=== PATIENT | female | born 1940 | race Caucasian/White ===

== ENCOUNTER 2020-04-27 09:06 | Inpatient (IN) | payer MEDICARE, OTHER ==
[2020-04-27] MEDS ORDERED: Sodium Chloride 0.9% 2.5 ML Syringe FLUSH PRN (09:23)
[2020-04-27] MEDS ORDERED: Sodium Chloride 0.9% 10 ML Syringe FLUSH PRN (09:23)
[2020-04-27] MEDS ORDERED: Sodium Chloride 0.9% 1,000 ML IV ONE (09:23)
--- NOTE | 2020-04-27 09:28 | EDM.PDOC ---
ED HPI GENERAL MEDICAL PROBLEM - General Chief Complaint: Abdominal Pain Stated Complaint: SEVERE ABDOMINAL PAINS Time Seen by Provider: 04/27/20 09:22 - History of Present Illness INITIAL COMMENTS - FREE TEXT/NARRATIVE: History of present illness: Patient presents with several days of abdominal pain and constipation she has seen a regular doctor and tried Colace as well as some MiraLAX and is unable to have a bowel movement she has had a small bowel movement last Lauren is now been 6 days she is passing a small amount of gas but she is having lots of pain and discomfort she denies any dysuria nausea vomiting she has not had any other symptoms but she states she did have an elevated temp at 100.1 yesterday she denies taking any pain medications that might cause constipation Review of systems: As per history of present illness and below otherwise all systems reviewed and negative. Past medical history: As per history of present illness and as reviewed below otherwise noncontributory. Surgical history: As per history of present illness and as reviewed below otherwise noncontributory. Social history: No reported history of drug or alcohol abuse. Family history: As per history of present illness and as reviewed below otherwise noncontributory. Physical exam: HEENT: Atraumatic, normocephalic, pupils reactive, negative for conjunctival pallor or scleral icterus, mucous membranes moist, throat clear, neck supple, nontender, trachea midline. Lungs: Clear to auscultation, breath sounds equal bilaterally, chest nontender. Heart: S1S2, regular, negative for clicks, rubs, or JVD. Abdomen: Soft, nondistended, nontender. Negative for masses or hepatosplenomegaly. Negative for costovertebral tenderness. Pelvis: Stable nontender. Genitourinary: Deferred. Rectal: Deferred. Extremities: Atraumatic, negative for cords or calf pain. Neurovascular unremarkable. Neuro: Awake, alert, oriented. Cranial nerves II through XII unremarkable. Cerebellum unremarkable. Motor and sensory unremarkable throughout. Exam nonfocal. Diagnostics: [] Therapeutics: [] Impression: Abdominal pain, constipation [] Plan: Patient will have labs fluids and CT of the abdomen pelvis due to her abdominal pain. She will then be reassessed [] Definitive disposition and diagnosis as appropriate pending reevaluation and review of above. lower abdomen Pain Score (Numeric/FACES): 6 - Related Data Allergies Allergy/AdvReac Type Severity Reaction Status Date / Time No Known Allergies Allergy Verified 04/27/20 09:09 Home Meds: Home Meds Hydrochlorothiazide 1 tab PO DAILY 03/28/16 [History] Levothyroxine [Synthroid] 75 mcg PO DAILY 03/28/16 [History] Multivitamin [Daily Multiple Vitamin] 1 tab PO DAILY 03/28/16 [History] Rosuvastatin [Crestor] 10 mg PO DAILY 03/28/16 [History] Diltiazem [Cardizem SR] 120 mg PO DAILY 04/27/20 [History] Escitalopram [Lexapro] 10 mg PO DAILY 04/27/20 [History] Past Medical History HEENT History: Reports: None Cardiovascular History: Reports: Afib, High Cholesterol, Hypertension Respiratory History: Reports: None Gastrointestinal History: Reports: None Genitourinary History: Reports: None 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: Musculoskeletal History: Reports: None Neurological History: Reports: None Psychiatric History: Reports: Depression Endocrine/Metabolic History: Reports: Hypothyroidism Hematologic History: Reports: None Immunologic History: Reports: None Oncologic (Cancer) History: Reports: None Dermatologic History: Reports: None - Infectious Disease History Infectious Disease History: Reports: Chicken Pox, Measles - Past Surgical History Head Surgeries/Procedures: Reports: None HEENT Surgical History: Reports: None Cardiovascular Surgical History: Reports: None Respiratory Surgical History: Reports: None GI Surgical History: Reports: Appendectomy, Cholecystectomy Female Surgical History: Reports: Hysterectomy, Other (See Below) Other Female Surgeries/Procedures: "bladder surgery" Endocrine Surgical History: Reports: None Neurological Surgical History: Reports: None Musculoskeletal Surgical History: Reports: Shoulder Replacement Oncologic Surgical History: Reports: None Dermatological Surgical History: Reports: None Social & Family History - Family History Family Medical History: Noncontributory - Tobacco Use Smoking Status *Q: Never Smoker Second Hand Smoke Exposure: No - Caffeine Use Caffeine Use: Reports: None - Recreational Drug Use Recreational Drug Use: No ED ROS GENERAL - Review of Systems Review Of Systems: See Below ED EXAM, GENERAL - Physical Exam Exam: See Below Course - Vital Signs Text/Narrative:: Patient results include a hypokalemia at 2.5 leukocytosis at 16,000 and a diverticulitis on the CT read by radiology on her CT abdomen and pelvis patient is otherwise stable her potassium was repleted orally she will be started on Zosyn I discussed case with Dr. Stone at 11:05 AM and he will admit the patient to the hospital full admission telemetry. Last Recorded V/S: Last Vital Signs Temp 36.1 C 04/27/20 09:10 Pulse 81 04/27/20 09:10 Resp 18 04/27/20 09:10 BP 131/83 04/27/20 09:10 Pulse Ox 97 04/27/20 09:10 - Orders/Labs/Meds Orders: Active Orders 24 hr Category Date Time Status CORONAVIRUS COVID-19 PCR PHL Stat Lab 04/27/20 10:56 Ordered UA W/ISMAEL RFLX IF INDICATED [URIN] Stat Lab 04/27/20 09:24 Ordered Piperacillin/Tazobactam [Piperacil-Tazobact] 3.375 gm Med 04/27/20 10:57 Active Sodium Chloride 0.9% [Normal Saline] 50 ml IV ONETIME Sodium Chloride 0.9% [Saline Flush] Med 04/27/20 09:23 Active 10 ml FLUSH ASDIRECTED PRN Sodium Chloride 0.9% [Saline Flush] Med 04/27/20 09:23 Active 2.5 ml FLUSH ASDIRECTED PRN Saline Lock Insert [OM.PC] Stat Oth 04/27/20 09:23 Ordered Medication Orders Piperacillin Sod/Tazobactam (Sod 3.375 gm/ Sodium Chloride) 50 mls @ 100 mls/hr IV ONETIME ONE Stop: 04/27/20 11:26 Sodium Chloride (Saline Flush) 10 ml FLUSH ASDIRECTED PRN PRN Reason: Keep Vein Open Last Admin: 04/27/20 09:32 Dose: 10 ml Documented by: SHMUEL Sodium Chloride (Saline Flush) 2.5 ml FLUSH ASDIRECTED PRN PRN Reason: Keep Vein Open Last Admin: 04/27/20 09:32 Dose: 2.5 ml Documented by: SHMUEL Labs: Laboratory Tests 04/27/20 04/27/20 Range/Units 09:12 09:12 WBC 16.40 H (4.0-11.0) K/uL RBC 4.21 L (4.30-5.90) M/uL Hgb 13.5 (12.0-16.0) g/dL Hct 38.6 (36.0-46.0) % MCV 91.7 (80.0-98.0) fL MCH 32.1 H (27.0-32.0) pg MCHC 35.0 (31.0-37.0) g/dL RDW Std Deviation 42.7 (28.0-62.0) fl RDW Coeff of Bronwyn 13 (11.0-15.0) % Plt Count 231 (150-400) K/uL MPV 9.60 (7.40-12.00) fL Neut % (Auto) 77.0 (48.0-80.0) % Lymph % (Auto) 10.2 L (16.0-40.0) % [place] % (Auto) 12.0 (0.0-15.0) % Eos % (Auto) 0.7 (0.0-7.0) % Baso % (Auto) 0.1 (0.0-1.5) % Neut # (Auto) 12.6 H (1.4-5.7) K/uL Lymph # (Auto) 1.7 (0.6-2.4) K/uL [place] # (Auto) 2.0 H (0.0-0.8) K/uL Eos # (Auto) 0.1 (0.0-0.7) K/uL Baso # (Auto) 0.0 (0.0-0.1) K/uL Nucleated RBC % 0.0 /100WBC Nucleated RBCs # 0 K/uL Sodium 138 (136-145) mmol/L Potassium 2.5 L (3.5-5.1) mmol/L Chloride 98 (98-107) mmol/L Carbon Dioxide 28.9 (21.0-32.0) mmol/L BUN 14 (7.0-18.0) mg/dL Creatinine 1.3 H (0.6-1.0) mg/dL Est Cr Clr Drug Dosing 28.55 mL/min Estimated GFR (MDRD) 39.4 ml/min Glucose 119 H (74-106) mg/dL Calcium 8.8 (8.5-10.1) mg/dL Total Bilirubin 0.7 (0.2-1.0) mg/dL AST 31 (15-37) IU/L ALT 26 (14-63) IU/L Alkaline Phosphatase 68 (46-116) U/L Total Protein 7.4 (6.4-8.2) g/dL Albumin 3.2 L (3.4-5.0) g/dL Globulin 4.2 H (2.6-4.0) g/dL Albumin/Globulin Ratio 0.8 L (0.9-1.6) Lipase 45 L (73-393) U/L Meds: Medications Generic Name Dose Route Start Last Admin Trade Name Freq PRN Reason Stop Dose Admin Piperacillin Sod/Tazobactam 50 mls @ 100 mls/hr 04/27/20 10:57 Sod 3.375 gm/ Sodium Chloride IV 04/27/20 11:26 ONETIME ONE Sodium Chloride 10 ml 04/27/20 09:23 04/27/20 09:32 Saline Flush FLUSH 10 ml ASDIRECTED PRN Administration Keep Vein Open Sodium Chloride 2.5 ml 04/27/20 09:23 04/27/20 09:32 Saline Flush FLUSH 2.5 ml ASDIRECTED PRN Administration Keep Vein Open Discontinued Medications Generic Name Dose Route Start Last Admin Trade Name Freq PRN Reason Stop Dose Admin Sodium Chloride 1,000 mls @ 999 mls/hr 04/27/20 09:23 04/27/20 09:31 Normal Saline IV 04/27/20 10:23 999 mls/hr .Bolus ONE Administration Potassium Chloride 40 meq 04/27/20 10:06 04/27/20 10:15 Potassium Chloride PO 04/27/20 10:07 40 meq ONETIME ONE Administration Departure - Departure Time of Disposition: 11:00 Disposition: Admitted As Inpatient 65 Condition: Good Clinical Impression: Abdominal pain, Diverticulitis, Hypokalemia - Discharge Information *PRESCRIPTION DRUG MONITORING PROGRAM REVIEWED*: Not Applicable *COPY OF PRESCRIPTION DRUG MONITORING REPORT IN PATIENT LAURI: Not Applicable Instructions: Hypokalemia, Diverticulitis Referrals: Franklin Ayon MD [Primary Care Provider] - Forms: ED Department Discharge Sepsis Event Note (ED) - Evaluation Sepsis Screening Result: No Definite Risk - Focused Exam Vital Signs: Vital Signs Temp Pulse Resp BP Pulse Ox 04/27/20 09:10 36.1 C 81 18 131/83 97 - My Orders Last 24 Hours: My Active Orders 04/27/20 09:23 Sodium Chloride 0.9% [Saline Flush] 10 ml FLUSH ASDIRECTED PRN Sodium Chloride 0.9% [Saline Flush] 2.5 ml FLUSH ASDIRECTED PRN Saline Lock Insert [OM.PC] Stat 04/27/20 09:24 UA W/ISMAEL RFLX IF INDICATED [URIN] Stat 04/27/20 10:56 CORONAVIRUS COVID-19 PCR PHL Stat 04/27/20 10:57 Piperacillin/Tazobactam [Piperacil-Tazobact] 3.375 gm Sodium Chloride 0.9% [Normal Saline] 50 ml IV ONETIME - Assessment/Plan Last 24 Hours: My Active Orders 04/27/20 09:23 Sodium Chloride 0.9% [Saline Flush] 10 ml FLUSH ASDIRECTED PRN Sodium Chloride 0.9% [Saline Flush] 2.5 ml FLUSH ASDIRECTED PRN Saline Lock Insert [OM.PC] Stat 04/27/20 09:24 UA W/ISMAEL RFLX IF INDICATED [URIN] Stat 04/27/20 10:56 CORONAVIRUS COVID-19 PCR PHL Stat 04/27/20 10:57 Piperacillin/Tazobactam [Piperacil-Tazobact] 3.375 gm Sodium Chloride 0.9% [Normal Saline] 50 ml IV ONETIME
[2020-04-27 09:53] LABS: CARBON DIOXIDE,CO2 28.9 mmol/L (21.0-32.0); POTASSIUM,K 2.5 mmol/L (3.5-5.1)
[2020-04-27] MEDS ORDERED: Potassium Chloride 10% 20 MEQ/15 ML Soln 30 ML UD Cup PO ONE (10:06)
--- NOTE | 2020-04-27 10:53 | CT ---
CT abdomen and pelvis Technique: Multiple axial sections were obtained from above the dome of the diaphragm inferiorly through the pubic symphysis. Intravenous contrast was utilized. No oral contrast has been given. Findings: Inflammatory change is noted around the sigmoid colon. Sigmoid colon shows diverticuli and findings most likely relate to diverticulitis. Mild bowel wall thickening is seen within the sigmoid colon as well as slight increased stool within the left colon and sigmoid region. Second area of inflammatory change is noted around the descending colon possibly due to additional diverticulitis. Appendix is not visualized with certainty. Other findings: Visualized lung bases shows a granuloma on the left side. No acute parenchymal process is seen within either lung base. Liver contains no focal parenchymal abnormality. Spleen appears within normal limits. Adrenal glands show no nodule. Kidneys show symmetric contrast enhancement. Cyst is noted within the left kidney which measures 2.9 cm in size. No additional abnormality is appreciated within the kidneys. Pancreas is normal. Aorta shows atherosclerotic calcification which continues in the iliac vessels without aneurysm. No retroperitoneal adenopathy or mesenteric abnormalities are seen. No pelvic mass or adenopathy is identified. Bone window settings were reviewed which shows degenerative change scattered within the spine. No acute osseous finding is appreciated. Impression: 1. Findings are felt compatible with diverticulitis around the sigmoid colon as well as possible second area of diverticulitis around the upper descending colon. 2. Other findings believed to be incidental and nonacute as described above. 3. Appendix not visualized. Diagnostic code #3 This report was dictated in MDT
[2020-04-27] MEDS ORDERED: Piperacillin/Tazobactam 3.375 GM in Sodium Chloride 0.9% 50 ML IV ONE (10:57)
[2020-04-27] MEDS ORDERED: Ondansetron 4 MG/2 ML SDV IVPUSH PRN (12:47)
--- NOTE | 2020-04-27 12:52 | PCM.HP.2 ---
H&P History of Present Illness - General Date of Service: 04/27/20 Admit Problem/Dx: Admission Diagnosis/Problem Admission Diagnosis/Problem Diverticulitis Source of Information: Patient History Limitations: Reports: No Limitations - History of Present Illness Initial Comments - Free Text/Narative: This 79 year old female with pmh of HTN, afib, and hypothyroidism presented to the ED with complaints of constipation and abdominal pain. She reports she has been constipated x 3 weeks and saw her PCP, who suggested Miralax and Colace. She had her last BM a couple days ago, no blood and it was very difficult to pass. She denies diarrhea. She reports the LLQ abdominal pain started about 1 week ago, she has had some mild nausea, but able to eat and drink at home. She denies chest pain, shortness of breath, vomiting, urinary concerns and no focal neurological deficits. She denies alcohol or tobacco use and no recreational drug use. She reports she has had many abdominal surgeries, including cholecystectomy, appendectomy and hysterectomy. She reports she last had a colo noscopy 15 years ago and reports that was normal. No history of colon cancer. In the ED leukocytosis notes at 16,400, K+ 2.5 BUN 14, Cr 1.3. VS remained stable. CT abdomen pelvis revealed acute sigmoid diverticulitis along with mild descending colon diverticulitis as well. She was treated with IVFs and Zosyn in the ED along with potassium PO. She will be admitted inpatient for acute diverticulitis and hypokalemia PCP, Dr Ayon lower abdomen Pain Score (Numeric/FACES): 6 - Related Data Allergies/Adverse Reactions: Allergies Allergy/AdvReac Type Severity Reaction Status Date / Time No Known Allergies Allergy Verified 04/27/20 13:49 Home Medications: Home Meds Hydrochlorothiazide 1 tab PO DAILY 03/28/16 [History] Levothyroxine [Synthroid] 75 mcg PO DAILY 03/28/16 [History] Multivitamin [Daily Multiple Vitamin] 1 tab PO DAILY 03/28/16 [History] Rosuvastatin [Crestor] 10 mg PO DAILY 03/28/16 [History] Diltiazem [Cardizem SR] 120 mg PO DAILY 04/27/20 [History] Escitalopram [Lexapro] 10 mg PO DAILY 04/27/20 [History] Past Medical History HEENT History: Reports: None Cardiovascular History: Reports: Afib, High Cholesterol, Hypertension. Denies: Blood Clots/VTE/DVT Respiratory History: Reports: None. Denies: Asthma, COPD Gastrointestinal History: Reports: None. Denies: Bowel Obstruction, GI Bleed Genitourinary History: Reports: None. 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: Musculoskeletal History: Reports: None Neurological History: Reports: None Psychiatric History: Reports: Depression Endocrine/Metabolic History: Reports: Hypothyroidism Hematologic History: Reports: None Immunologic History: Reports: None Oncologic (Cancer) History: Reports: None Dermatologic History: Reports: None - Infectious Disease History Infectious Disease History: Reports: Chicken Pox, Measles - Past Surgical History Head Surgeries/Procedures: Reports: None HEENT Surgical History: Reports: None Cardiovascular Surgical History: Reports: None Respiratory Surgical History: Reports: None GI Surgical History: Reports: Appendectomy, Cholecystectomy Female Surgical History: Reports: Hysterectomy, Other (See Below) Other Female Surgeries/Procedures: "bladder surgery" Endocrine Surgical History: Reports: None Neurological Surgical History: Reports: None Musculoskeletal Surgical History: Reports: Shoulder Replacement Oncologic Surgical History: Reports: None Dermatological Surgical History: Reports: None Social & Family History - Family History Family Medical History: Noncontributory - Tobacco Use Smoking Status *Q: Never Smoker Second Hand Smoke Exposure: No - Caffeine Use Caffeine Use: Reports: None - Recreational Drug Use Recreational Drug Use: No - Living Situation & Occupation Living situation: Reports: Occupation: Retired H&P Review of Systems - Review of Systems: Review Of Systems: See Below General: Reports: No Symptoms. Denies: Fever, Chills, Malaise HEENT: Reports: No Symptoms. Denies: Headaches Pulmonary: Reports: No Symptoms. Denies: Shortness of Breath Cardiovascular: Reports: No Symptoms. Denies: Chest Pain Gastrointestinal: Reports: Abdominal Pain, Constipation, Decreased Appetite, Nausea. Denies: Black Stool, Bloody Stool, Distension, Vomiting Genitourinary: Reports: No Symptoms. Denies: Dysuria, Frequency Musculoskeletal: Reports: No Symptoms Skin: Reports: No Symptoms Psychiatric: Reports: No Symptoms Neurological: Reports: No Symptoms Hematologic/Lymphatic: Reports: No Symptoms Immunologic: Reports: No Symptoms Exam - Exam Exam: See Below - Vital Signs Vital Signs: Last Vital Signs Temp 97.0 F 04/27/20 09:10 Pulse 81 04/27/20 12:31 Resp 18 04/27/20 12:31 BP 133/74 04/27/20 12:31 Pulse Ox 98 04/27/20 12:31 Weight: 66.224 kg - Exam General: Alert, Oriented, Cooperative Neck: Supple, Trachea Midline Lungs: Clear to Auscultation, Normal Respiratory Effort Cardiovascular: Regular Rate, Regular Rhythm GI/Abdominal Exam: Normal Bowel Sounds, Soft, Non-Tender Back Exam: Normal Inspection, Full Range of Motion Extremities: Normal Inspection, Normal Range of Motion, Non-Tender, No Pedal Edema Neuro Extensive - Mental Status: Alert, Oriented x3 Neuro Extensive - Motor, Sensory, Reflexes: CN II-XII Intact Psychiatric: Alert, Normal Affect, Normal Mood - Patient Data Lab Results Last 24 hrs: Laboratory Results - last 24 hr 04/27/20 04/27/20 04/27/20 Range/Units 09:12 09:12 09:12 WBC 16.40 H (4.0-11.0) K/uL RBC 4.21 L (4.30-5.90) M/uL Hgb 13.5 (12.0-16.0) g/dL Hct 38.6 (36.0-46.0) % MCV 91.7 (80.0-98.0) fL MCH 32.1 H (27.0-32.0) pg MCHC 35.0 (31.0-37.0) g/dL RDW Std Deviation 42.7 (28.0-62.0) fl RDW Coeff of [place] 13 (11.0-15.0) % Plt Count 231 (150-400) K/uL MPV 9.60 (7.40-12.00) fL Neut % (Auto) 77.0 (48.0-80.0) % Lymph % (Auto) 10.2 L (16.0-40.0) % [place] % (Auto) 12.0 (0.0-15.0) % Eos % (Auto) 0.7 (0.0-7.0) % Baso % (Auto) 0.1 (0.0-1.5) % Neut # (Auto) 12.6 H (1.4-5.7) K/uL Lymph # (Auto) 1.7 (0.6-2.4) K/uL [place] # (Auto) 2.0 H (0.0-0.8) K/uL Eos # (Auto) 0.1 (0.0-0.7) K/uL Baso # (Auto) 0.0 (0.0-0.1) K/uL Nucleated RBC % 0.0 /100WBC Nucleated RBCs # 0 K/uL Sodium 138 (136-145) mmol/L Potassium 2.5 L (3.5-5.1) mmol/L Chloride 98 (98-107) mmol/L Carbon Dioxide 28.9 (21.0-32.0) mmol/L BUN 14 (7.0-18.0) mg/dL Creatinine 1.3 H (0.6-1.0) mg/dL Est Cr Clr Drug Dosing 28.55 mL/min Estimated GFR (MDRD) 39.4 ml/min Glucose 119 H (74-106) mg/dL Calcium 8.8 (8.5-10.1) mg/dL Magnesium 1.8 (1.8-2.4) mg/dL Total Bilirubin 0.7 (0.2-1.0) mg/dL AST 31 (15-37) IU/L ALT 26 (14-63) IU/L Alkaline Phosphatase 68 (46-116) U/L Total Protein 7.4 (6.4-8.2) g/dL Albumin 3.2 L (3.4-5.0) g/dL Globulin 4.2 H (2.6-4.0) g/dL Albumin/Globulin Ratio 0.8 L (0.9-1.6) Lipase 45 L (73-393) U/L SARS Virus RNA (PCR) (NEGATIVE) 04/27/20 Range/Units 11:07 WBC (4.0-11.0) K/uL RBC (4.30-5.90) M/uL Hgb (12.0-16.0) g/dL Hct (36.0-46.0) % MCV (80.0-98.0) fL MCH (27.0-32.0) pg MCHC (31.0-37.0) g/dL RDW Std Deviation (28.0-62.0) fl RDW Coeff of [place] (11.0-15.0) % Plt Count (150-400) K/uL MPV (7.40-12.00) fL Neut % (Auto) (48.0-80.0) % Lymph % (Auto) (16.0-40.0) % [place] % (Auto) (0.0-15.0) % Eos % (Auto) (0.0-7.0) % Baso % (Auto) (0.0-1.5) % Neut # (Auto) (1.4-5.7) K/uL Lymph # (Auto) (0.6-2.4) K/uL [place] # (Auto) (0.0-0.8) K/uL Eos # (Auto) (0.0-0.7) K/uL Baso # (Auto) (0.0-0.1) K/uL Nucleated RBC % /100WBC Nucleated RBCs # K/uL Sodium (136-145) mmol/L Potassium (3.5-5.1) mmol/L Chloride (98-107) mmol/L Carbon Dioxide (21.0-32.0) mmol/L BUN (7.0-18.0) mg/dL Creatinine (0.6-1.0) mg/dL Est Cr Clr Drug Dosing mL/min Estimated GFR (MDRD) ml/min Glucose (74-106) mg/dL Calcium (8.5-10.1) mg/dL Magnesium (1.8-2.4) mg/dL Total Bilirubin (0.2-1.0) mg/dL AST (15-37) IU/L ALT (14-63) IU/L Alkaline Phosphatase (46-116) U/L Total Protein (6.4-8.2) g/dL Albumin (3.4-5.0) g/dL Globulin (2.6-4.0) g/dL Albumin/Globulin Ratio (0.9-1.6) Lipase (73-393) U/L SARS Virus RNA (PCR) NEGATIVE (NEGATIVE) Result Diagrams: 04/27/20 09:12 04/27/20 09:12 Sepsis Event Note - Evaluation Sepsis Screening Result: No Definite Risk - Focused Exam Vital Signs: Vital Signs Temp Pulse Resp BP Pulse Ox 04/27/20 12:31 81 18 133/74 98 04/27/20 09:10 97.0 F 81 18 131/83 97 - Problem List (1) Diverticulitis SNOMED Code(s): 959897376 ICD Code: K57.92 - DVTRCLI OF INTEST, PART UNSP, W/O PERF OR ABSCESS W/O BLEED Status: Acute Current Visit: Yes (2) Hypokalemia SNOMED Code(s): 15927320 ICD Code: E87.6 - HYPOKALEMIA Status: Acute Current Visit: Yes (3) HTN (hypertension) SNOMED Code(s): 19542478 ICD Code: I10 - ESSENTIAL (PRIMARY) HYPERTENSION Status: Chronic Current Visit: Yes Qualifiers: Hypertension type: essential hypertension Qualified Code(s): I10 - Essential (primary) hypertension (4) HLD (hyperlipidemia) SNOMED Code(s): 14342529 ICD Code: E78.5 - HYPERLIPIDEMIA, UNSPECIFIED Status: Chronic Current Visit: Yes (5) Hypothyroidism SNOMED Code(s): 18181354 ICD Code: E03.9 - HYPOTHYROIDISM, UNSPECIFIED Status: Chronic Current Visit: Yes Problem List Initiated/Reviewed/Updated: Yes Orders Last 24hrs: Active Orders 24 hr Category Date Time Status Patient Status [ADT] Routine ADT 04/27/20 12:09 Active Intake and Output [RC] QSHIFT Care 04/27/20 12:47 Ordered May Shower [RC] ASDIRECTED Care 04/27/20 12:47 Ordered Oxygen Therapy [RC] PRN Care 04/27/20 12:47 Ordered Telemetry Monitoring [Cardiac Monitoring] [RC] . Care 04/27/20 12:47 Ordered DIRECTED Up ad Reyna [RC] ASDIRECTED Care 04/27/20 12:47 Ordered VTE/DVT Education [RC] PER UNIT ROUTINE Care 04/27/20 12:47 Ordered Vital Signs [RC] Q4H Care 04/27/20 12:47 Ordered BASIC METABOLIC PANEL,BMP [CHEM] AM Lab 04/28/20 05:11 Ordered BASIC METABOLIC PANEL,BMP [CHEM] AM Lab 04/29/20 05:11 Ordered BASIC METABOLIC PANEL,BMP [CHEM] AM Lab 04/30/20 05:11 Ordered CBC WITH AUTO DIFF [HEME] AM Lab 04/28/20 05:11 Ordered CBC WITH AUTO DIFF [HEME] AM Lab 04/29/20 05:11 Ordered CBC WITH AUTO DIFF [HEME] AM Lab 04/30/20 05:11 Ordered UA W/ISMAEL RFLX IF INDICATED [URIN] Stat Lab 04/27/20 09:24 Ordered Heparin Sodium Med 04/27/20 13:00 Ordered 5,000 units SUBCUT Q12H Ondansetron [Zofran] Med 04/27/20 12:47 Ordered 4 mg IVPUSH Q4H PRN Pantoprazole [ProTONIX IV] Med 04/27/20 13:00 Ordered 40 mg IV Q24H Sodium Chloride 0.9% [Saline Flush] Med 04/27/20 09:23 Active 10 ml FLUSH ASDIRECTED PRN Sodium Chloride 0.9% [Saline Flush] Med 04/27/20 09:23 Active 2.5 ml FLUSH ASDIRECTED PRN Saline Lock Insert [OM.PC] Stat Oth 04/27/20 09:23 Ordered Medication Orders Sodium Chloride (Saline Flush) 10 ml FLUSH ASDIRECTED PRN PRN Reason: Keep Vein Open Last Admin: 04/27/20 09:32 Dose: 10 ml Documented by: SHMUEL Sodium Chloride (Saline Flush) 2.5 ml FLUSH ASDIRECTED PRN PRN Reason: Keep Vein Open Last Admin: 04/27/20 09:32 Dose: 2.5 ml Documented by: SHMUEL Assessment/Plan Comment:: This 79 year old female admitted with acute descending and sigmoid colon diverticulitis 1. Acute diverticulitis - NPO for now, ice chips and sips with meds ok - Zosyn 3.375 mg Q6 hrs - IVFs NS 100 ml/hr - Morphine PRN pain - Will need outpatient follow up with general surgery for colonoscopy 2. Hypokalemia - Given 40 po in ED. Give 40 meq IV now in 1 L NS - Monitor on telemetry - Magnesium 1.8 3. HTN - Continue Diltiazem PO - Monitor K+ and Mg - Monitor on telemetry - Hold HCTZ due to hypokalemia 4. Hypothyroidism: - Stable, continue Levothyroxine. VTE prophylaxis: Heparin Dispo: 2-3 days, family and patient did request transfer. Attempted to call [facility], [facility] [place] and [facility] all were at capacity and declined transfer. patient and family updated on this and are ok with staying. Reassured them of plan and they are in agreement so far. Code Status: DNR/DNI per patient - Mortality Measure Prognosis:: Good
[2020-04-27] MEDS ORDERED: Pantoprazole 40 MG Vial IV SCH (13:00)
[2020-04-27] MEDS ORDERED: Piperacillin/Tazobactam 2.25 GM in Sodium Chloride 0.9% 50 ML IV SCH (13:00)
[2020-04-27] MEDS: Sodium Chloride 0.9% 1,000 ML IV SCH (13:30)
[2020-04-27] MEDS: Heparin Sodium 5,000 Units/ML Vial SUBCUT SCH (13:31)
[2020-04-27] MEDS: Pantoprazole 40 MG in Sodium Chloride 0.9% 10 ML IV SCH (13:31)
[2020-04-27] MEDS ORDERED: Iopamidol 755 MG/ML 500 ML Multipack Bottle IVPUSH STA (14:00)
[2020-04-27] MEDS ORDERED: Morphine 2 MG/ML SYRINGE IVPUSH PRN (14:36)
[2020-04-27] MEDS ORDERED: Potassium Chloride 40 MEQ in Sodium Chloride 0.9% 480 ML IV ONE (14:59)
[2020-04-27] MEDS: Piperacillin/Tazobactam 2.25 GM in Sodium Chloride 0.9% 50 ML IV SCH (18:39)
[2020-04-28] MEDS: Heparin Sodium 5,000 Units/ML Vial SUBCUT SCH ×2 (00:31→13:39)
[2020-04-28] MEDS: Piperacillin/Tazobactam 2.25 GM in Sodium Chloride 0.9% 50 ML IV SCH ×4 (00:32→18:43)
[2020-04-28] MEDS: Sodium Chloride 0.9% 1,000 ML IV SCH ×2 (00:32→08:29)
[2020-04-28 05:48] LABS: CARBON DIOXIDE,CO2 20.9 mmol/L (21.0-32.0); POTASSIUM,K 3.3 mmol/L (3.5-5.1)
[2020-04-28] MEDS: Levothyroxine 75 MCG Tab PO SCH (06:09)
[2020-04-28] MEDS ORDERED: Sodium Chloride 0.9% 500 ML IV SCH (08:00)
--- NOTE | 2020-04-28 08:00 | PCM.PN ---
- General Info Date of Service: 04/28/20 Admission Dx/Problem (Free Text): Admission Diagnosis/Problem Admission Diagnosis/Problem Diverticulitis Subjective Update: Feeling improved this morning, abdominal pain improved. No nausea. Had BM early this morning. No chest pain or SOB. Functional Status: Reports: Pain Controlled, Ambulating, Urinating - Review of Systems General: Reports: No Symptoms. Denies: Weakness, Malaise Pulmonary: Reports: No Symptoms. Denies: Shortness of Breath Cardiovascular: Reports: No Symptoms. Denies: Chest Pain Gastrointestinal: Reports: No Symptoms. Denies: Abdominal Pain, Constipation, Nausea, Vomiting Genitourinary: Reports: No Symptoms. Denies: Dysuria, Frequency, Burning Musculoskeletal: Reports: No Symptoms Skin: Reports: No Symptoms Neurological: Reports: No Symptoms Psychiatric: Reports: No Symptoms - Patient Data Vitals - Most Recent: Last Vital Signs Temp 99.3 F 04/28/20 07:38 Pulse 74 04/28/20 07:38 Resp 17 04/28/20 03:06 BP 127/65 04/28/20 07:38 Pulse Ox 94 L 04/28/20 07:38 Weight - Most Recent: 66.224 kg I&O - Last 24 Hours: Intake & Output 04/27/20 04/28/20 04/28/20 22:59 06:59 14:59 Intake Total 795 Output Total 350 Balance 445 Lab Results Last 24 Hours: Laboratory Results - last 24 hr 04/27/20 04/27/20 04/27/20 Range/Units 09:12 09:12 09:12 WBC 16.40 H (4.0-11.0) K/uL RBC 4.21 L (4.30-5.90) M/uL Hgb 13.5 (12.0-16.0) g/dL Hct 38.6 (36.0-46.0) % MCV 91.7 (80.0-98.0) fL MCH 32.1 H (27.0-32.0) pg MCHC 35.0 (31.0-37.0) g/dL RDW Std Deviation 42.7 (28.0-62.0) fl RDW Coeff of [place] 13 (11.0-15.0) % Plt Count 231 (150-400) K/uL MPV 9.60 (7.40-12.00) fL Neut % (Auto) 77.0 (48.0-80.0) % Lymph % (Auto) 10.2 L (16.0-40.0) % [place] % (Auto) 12.0 (0.0-15.0) % Eos % (Auto) 0.7 (0.0-7.0) % Baso % (Auto) 0.1 (0.0-1.5) % Neut # (Auto) 12.6 H (1.4-5.7) K/uL Lymph # (Auto) 1.7 (0.6-2.4) K/uL [place] # (Auto) 2.0 H (0.0-0.8) K/uL Eos # (Auto) 0.1 (0.0-0.7) K/uL Baso # (Auto) 0.0 (0.0-0.1) K/uL Nucleated RBC % 0.0 /100WBC Nucleated RBCs # 0 K/uL Sodium 138 (136-145) mmol/L Potassium 2.5 L (3.5-5.1) mmol/L Chloride 98 (98-107) mmol/L Carbon Dioxide 28.9 (21.0-32.0) mmol/L BUN 14 (7.0-18.0) mg/dL Creatinine 1.3 H (0.6-1.0) mg/dL Est Cr Clr Drug Dosing 28.55 mL/min Estimated GFR (MDRD) 39.4 ml/min Glucose 119 H (74-106) mg/dL Calcium 8.8 (8.5-10.1) mg/dL Magnesium 1.8 (1.8-2.4) mg/dL Total Bilirubin 0.7 (0.2-1.0) mg/dL AST 31 (15-37) IU/L ALT 26 (14-63) IU/L Alkaline Phosphatase 68 (46-116) U/L Total Protein 7.4 (6.4-8.2) g/dL Albumin 3.2 L (3.4-5.0) g/dL Globulin 4.2 H (2.6-4.0) g/dL Albumin/Globulin Ratio 0.8 L (0.9-1.6) Lipase 45 L (73-393) U/L Urine Color Urine Appearance Urine pH (5.0-8.0) Ur Specific [place] (1.001-1.035) Urine Protein (NEGATIVE) mg/dL Urine Glucose (UA) (NEGATIVE) mg/dL Urine Ketones (NEGATIVE) mg/dL Urine Occult Blood (NEGATIVE) Urine Nitrite (NEGATIVE) Urine Bilirubin (NEGATIVE) Urine Urobilinogen (<2.0) EU/dL Ur Leukocyte Esterase (NEGATIVE) Urine RBC (0-2/HPF) Urine WBC (0-5/HPF) Ur Epithelial Cells (NONE-FEW) Urine Bacteria (NEGATIVE) SARS Virus RNA (PCR) (NEGATIVE) 04/27/20 04/27/20 04/28/20 Range/Units 11:07 16:50 04:51 WBC 13.64 H (4.0-11.0) K/uL RBC 3.64 L (4.30-5.90) M/uL Hgb 11.7 L (12.0-16.0) g/dL Hct 33.7 L (36.0-46.0) % MCV 92.6 (80.0-98.0) fL MCH 32.1 H (27.0-32.0) pg MCHC 34.7 (31.0-37.0) g/dL RDW Std Deviation 43.7 (28.0-62.0) fl RDW Coeff of [place] 13 (11.0-15.0) % Plt Count 204 (150-400) K/uL MPV 9.70 (7.40-12.00) fL Neut % (Auto) 77.4 (48.0-80.0) % Lymph % (Auto) 11.4 L (16.0-40.0) % [place] % (Auto) 10.0 (0.0-15.0) % Eos % (Auto) 1.1 (0.0-7.0) % Baso % (Auto) 0.1 (0.0-1.5) % Neut # (Auto) 10.6 H (1.4-5.7) K/uL Lymph # (Auto) 1.6 (0.6-2.4) K/uL [place] # (Auto) 1.4 H (0.0-0.8) K/uL Eos # (Auto) 0.2 (0.0-0.7) K/uL Baso # (Auto) 0.0 (0.0-0.1) K/uL Nucleated RBC % 0.0 /100WBC Nucleated RBCs # 0 K/uL Sodium (136-145) mmol/L Potassium (3.5-5.1) mmol/L Chloride (98-107) mmol/L Carbon Dioxide (21.0-32.0) mmol/L BUN (7.0-18.0) mg/dL Creatinine (0.6-1.0) mg/dL Est Cr Clr Drug Dosing mL/min Estimated GFR (MDRD) ml/min Glucose (74-106) mg/dL Calcium (8.5-10.1) mg/dL Magnesium (1.8-2.4) mg/dL Total Bilirubin (0.2-1.0) mg/dL AST (15-37) IU/L ALT (14-63) IU/L Alkaline Phosphatase (46-116) U/L Total Protein (6.4-8.2) g/dL Albumin (3.4-5.0) g/dL Globulin (2.6-4.0) g/dL Albumin/Globulin Ratio (0.9-1.6) Lipase (73-393) U/L Urine Color YELLOW Urine Appearance HAZY Urine pH 5.5 (5.0-8.0) Ur Specific [place] 1.015 (1.001-1.035) Urine Protein TRACE H (NEGATIVE) mg/dL Urine Glucose (UA) NEGATIVE (NEGATIVE) mg/dL Urine Ketones NEGATIVE (NEGATIVE) mg/dL Urine Occult Blood LARGE H (NEGATIVE) Urine Nitrite NEGATIVE (NEGATIVE) Urine Bilirubin NEGATIVE (NEGATIVE) Urine Urobilinogen 0.2 (<2.0) EU/dL Ur Leukocyte Esterase TRACE H (NEGATIVE) Urine RBC 3-6 (0-2/HPF) Urine WBC 0-4 (0-5/HPF) Ur Epithelial Cells FEW (NONE-FEW) Urine Bacteria 1+ H (NEGATIVE) SARS Virus RNA (PCR) NEGATIVE (NEGATIVE) 04/28/20 Range/Units 04:51 WBC (4.0-11.0) K/uL RBC (4.30-5.90) M/uL Hgb (12.0-16.0) g/dL Hct (36.0-46.0) % MCV (80.0-98.0) fL MCH (27.0-32.0) pg MCHC (31.0-37.0) g/dL RDW Std Deviation (28.0-62.0) fl RDW Coeff of [place] (11.0-15.0) % Plt Count (150-400) K/uL MPV (7.40-12.00) fL Neut % (Auto) (48.0-80.0) % Lymph % (Auto) (16.0-40.0) % [place] % (Auto) (0.0-15.0) % Eos % (Auto) (0.0-7.0) % Baso % (Auto) (0.0-1.5) % Neut # (Auto) (1.4-5.7) K/uL Lymph # (Auto) (0.6-2.4) K/uL [place] # (Auto) (0.0-0.8) K/uL Eos # (Auto) (0.0-0.7) K/uL Baso # (Auto) (0.0-0.1) K/uL Nucleated RBC % /100WBC Nucleated RBCs # K/uL Sodium 144 (136-145) mmol/L Potassium 3.3 L (3.5-5.1) mmol/L Chloride 108 H (98-107) mmol/L Carbon Dioxide 20.9 L (21.0-32.0) mmol/L BUN 12 (7.0-18.0) mg/dL Creatinine 1.0 (0.6-1.0) mg/dL Est Cr Clr Drug Dosing 37.12 mL/min Estimated GFR (MDRD) 53.3 ml/min Glucose 92 (74-106) mg/dL Calcium 8.1 L (8.5-10.1) mg/dL Magnesium (1.8-2.4) mg/dL Total Bilirubin (0.2-1.0) mg/dL AST (15-37) IU/L ALT (14-63) IU/L Alkaline Phosphatase (46-116) U/L Total Protein (6.4-8.2) g/dL Albumin (3.4-5.0) g/dL Globulin (2.6-4.0) g/dL Albumin/Globulin Ratio (0.9-1.6) Lipase (73-393) U/L Urine Color Urine Appearance Urine pH (5.0-8.0) Ur Specific [place] (1.001-1.035) Urine Protein (NEGATIVE) mg/dL Urine Glucose (UA) (NEGATIVE) mg/dL Urine Ketones (NEGATIVE) mg/dL Urine Occult Blood (NEGATIVE) Urine Nitrite (NEGATIVE) Urine Bilirubin (NEGATIVE) Urine Urobilinogen (<2.0) EU/dL Ur Leukocyte Esterase (NEGATIVE) Urine RBC (0-2/HPF) Urine WBC (0-5/HPF) Ur Epithelial Cells (NONE-FEW) Urine Bacteria (NEGATIVE) SARS Virus RNA (PCR) (NEGATIVE) Med Orders - Current: Current Medications Diltiazem HCl (Cardizem Cd) 120 mg PO DAILY [facility] Escitalopram Oxalate (Lexapro) 10 mg PO DAILY [facility] Heparin Sodium (Porcine) (Heparin Sodium) 5,000 units SUBCUT Q12H [facility] Last Admin: 04/28/20 00:31 Dose: 5,000 units Documented by: Pantoprazole Sodium 40 mg/ (Sodium Chloride) 10 mls @ 300 mls/hr IV Q24H [facility] Last Admin: 04/27/20 13:31 Dose: 300 mls/hr Documented by: Sodium Chloride (Normal Saline) 1,000 mls @ 100 mls/hr IV Q10H [facility] Last Admin: 04/28/20 00:32 Dose: 100 mls/hr Documented by: Piperacillin Sod/Tazobactam (Sod 2.25 gm/ Sodium Chloride) 50 mls @ 100 mls/hr IV Q6H [facility] Last Admin: 04/28/20 06:07 Dose: 100 mls/hr Documented by: Sodium Chloride (Normal Saline) 500 mls @ 999 mls/hr IV .BOLUS [facility] Levothyroxine Sodium (Levothyroxine) 75 mcg PO DAILY@0700 [facility] Last Admin: 04/28/20 06:09 Dose: 75 mcg Documented by: Morphine Sulfate (Morphine) 2 mg IVPUSH Q4H PRN PRN Reason: Pain Ondansetron HCl (Zofran) 4 mg IVPUSH Q4H PRN PRN Reason: Nausea Rosuvastatin Calcium (Crestor) 10 mg PO DAILY [facility] Sodium Chloride (Saline Flush) 2.5 ml FLUSH ASDIRECTED PRN PRN Reason: Keep Vein Open Last Admin: 04/27/20 09:32 Dose: 2.5 ml Documented by: Discontinued Medications Sodium Chloride (Normal Saline) 1,000 mls @ 999 mls/hr IV .Bolus ONE Stop: 04/27/20 10:23 Last Admin: 04/27/20 09:31 Dose: 999 mls/hr Documented by: Piperacillin Sod/Tazobactam (Sod 3.375 gm/ Sodium Chloride) 50 mls @ 100 mls/hr IV ONETIME ONE Stop: 04/27/20 11:26 Last Admin: 04/27/20 12:30 Dose: 100 mls/hr Documented by: Piperacillin Sod/Tazobactam (Sod 2.25 gm/ Sodium Chloride) 50 mls @ 100 mls/hr IV Q6H [facility] Last Admin: 04/27/20 14:36 Dose: Not Given Documented by: Potassium Chloride 40 meq/ (Sodium Chloride) 500 mls @ 100 mls/hr IV ONETIME ONE Stop: 04/27/20 19:58 Last Admin: 04/27/20 16:44 Dose: 100 mls/hr Documented by: Iopamidol (Isovue Multipack-370 (76%)) 75 ml IVPUSH ONETIME STA Stop: 04/27/20 14:01 Last Admin: 04/27/20 14:01 Dose: 75 ml Documented by: Potassium Chloride (Potassium Chloride) 40 meq PO ONETIME ONE Stop: 04/27/20 10:07 Last Admin: 04/27/20 10:15 Dose: 40 meq Documented by: Sodium Chloride (Saline Flush) 10 ml FLUSH ASDIRECTED PRN PRN Reason: Keep Vein Open Last Admin: 04/27/20 09:32 Dose: 10 ml Documented by: - Exam General: Alert, Oriented, Cooperative, No Acute Distress Lungs: Clear to Auscultation, Normal Respiratory Effort Cardiovascular: Regular Rate, Regular Rhythm GI/Abdominal Exam: Normal Bowel Sounds, Soft, Tender (LLQ tenderness but improved from yesterday) Extremities: Normal Inspection, Normal Range of Motion, Non-Tender, No Pedal Edema, Other (reporting L knee pain and leg weakness. but has been able to ambulate to the bathroom with assistance without concerns. L knee joint is not swollen or red. No fluctuance. able to move knee but has some pain, reports it is her arthritis.) Neurological: No New Focal Deficit Psy/Mental Status: Alert, Normal Affect, Normal Mood Sepsis Event Note - Evaluation Sepsis Screening Result: No Definite Risk - Focused Exam Vital Signs: Vital Signs Temp Temp Pulse Resp BP Pulse Ox 04/28/20 07:38 99.3 F 74 127/65 94 L 04/28/20 03:06 98.2 F 70 17 109/59 L 92 L 04/28/20 00:08 99.9 F 76 17 116/68 95 04/27/20 20:28 99 F - Problem List & Annotations (1) Diverticulitis SNOMED Code(s): 554399934 Code(s): K57.92 - DVTRCLI OF INTEST, PART UNSP, W/O PERF OR ABSCESS W/O BLEED Status: Acute Current Visit: Yes (2) Hypokalemia SNOMED Code(s): 92415369 Code(s): E87.6 - HYPOKALEMIA Status: Acute Current Visit: Yes (3) HTN (hypertension) SNOMED Code(s): 31400680 Code(s): I10 - ESSENTIAL (PRIMARY) HYPERTENSION Status: Chronic Current Visit: Yes Qualifiers: Hypertension type: essential hypertension Qualified Code(s): I10 - Essential (primary) hypertension (4) HLD (hyperlipidemia) SNOMED Code(s): 13859254 Code(s): E78.5 - HYPERLIPIDEMIA, UNSPECIFIED Status: Chronic Current Visit: Yes (5) Hypothyroidism SNOMED Code(s): 51115805 Code(s): E03.9 - HYPOTHYROIDISM, UNSPECIFIED Status: Chronic Current Visit: Yes - Problem List Review Problem List Initiated/Reviewed/Updated: Yes - My Orders Last 24 Hours: My Active Orders 04/27/20 12:47 Intake and Output [RC] QSHIFT May Shower [RC] ASDIRECTED Oxygen Therapy [RC] PRN Telemetry Monitoring [Cardiac Monitoring] [RC] Q8H Up ad Reyna [RC] ASDIRECTED VTE/DVT Education [RC] PER UNIT ROUTINE Vital Signs [RC] Q4H Ondansetron [Zofran] 4 mg IVPUSH Q4H PRN 04/27/20 13:00 Heparin Sodium 5,000 units SUBCUT Q12H Pantoprazole [ProTONIX IV] 40 mg Sodium Chloride 0.9% [Normal Saline] 10 ml IV Q24H 04/27/20 13:30 Sodium Chloride 0.9% [Normal Saline] 1,000 ml IV Q10H 04/27/20 14:36 Morphine 2 mg IVPUSH Q4H PRN 04/27/20 15:07 Resuscitation Status Routine 04/27/20 Dinner NPO [Nothing Per Oral Diet] [DIET] 04/27/20 19:00 Piperacillin/Tazobactam [Zosyn] 2.25 gm Sodium Chloride 0.9% [Normal Saline] 50 ml IV Q6H 04/28/20 07:00 Levothyroxine 75 mcg PO DAILY@0700 04/28/20 07:50 CULTURE URINE [RM] Routine 04/28/20 07:53 CULTURE BLOOD [BC] Stat CULTURE BLOOD [BC] Stat Blood Culture x2 Reflex Set [OM.PC] Stat 04/28/20 08:00 Sodium Chloride 0.9% [Normal Saline] 500 ml IV .BOLUS 04/28/20 09:00 Diltiazem [Cardizem CD] 120 mg PO DAILY Escitalopram [Lexapro] 10 mg PO DAILY Rosuvastatin [Crestor] 10 mg PO DAILY 04/29/20 05:11 BASIC METABOLIC PANEL,BMP [CHEM] AM CBC WITH AUTO DIFF [HEME] AM 04/30/20 05:11 BASIC METABOLIC PANEL,BMP [CHEM] AM CBC WITH AUTO DIFF [HEME] AM - Plan Plan:: This 79 year old female admitted with acute descending and sigmoid colon diverticulitis 1. Acute diverticulitis - Improvement in pain. - Fever overnight, BC obtained this morning and pending. - Had BM this morning, reporting that is was a normal BM. - FL diet today and monitor - Zosyn 3.375 mg Q6 hrs - IVFs NS 100 ml/hr - Morphine PRN pain - Will need outpatient follow up with general surgery in [place] for colonoscopy 2. Hypokalemia - Improved to 3.3 today - DC telemetry - Give 40 meq PO today and monitor in the morning. 3. HTN - Hold Diltiazem PO today - Monitor K+ and Mg - Hold HCTZ due to hypokalemia 4. Hypothyroidism: - Stable, continue Levothyroxine. 5. L knee pain: - Able to ambulate on - Consult PT - Tylenol PRN pain - Head CT negative, obtained due to weakness, but able to walk and this is more related to pain versus weakness. VTE prophylaxis: Heparin Dispo: 2-3 days, Discussed care with daughter Koki this morning, she is happy with improvement. No discussion of transfer today. She was updated on all labs and imaging. Code Status: DNR/DNI per patient
[2020-04-28] MEDS: Escitalopram 10 MG Tab PO SCH (08:29)
[2020-04-28] MEDS: Rosuvastatin 10 MG Tab PO SCH (08:30)
[2020-04-28] MEDS: Diltiazem 120 MG Cap.CD PO SCH (08:46)
--- NOTE | 2020-04-28 09:55 | CT ---
Head CT Technique: Multiple axial sections through the brain were obtained. Intravenous contrast was not utilized. Comparison: Prior head CT study of 12/26/19. Findings: Ventricles along with basal cisterns and sulci over the convexities are moderately prominent. Asymmetric atrophy is noted within both frontal regions. These findings are stable from previous exam. Mild areas of diminished density are noted within the periventricular and subcortical white matter most likely representing small vessel ischemic demyelination change. Atherosclerotic calcification is noted within the vertebral vessels and within the carotid siphon. Bone window settings were reviewed which shows no acute findings within the visualized paranasal sinus or mastoid sinuses. No acute calvarial abnormality is appreciated. Impression: 1. Stable senescent change as noted above. 2. Nothing acute is appreciated on noncontrast head CT exam. Note: Please correlate of patient's symptoms warrant further evaluation by MRI. Diagnostic code #2 This report was dictated in MDT
[2020-04-28] MEDS: Acetaminophen 325 MG Tab PO PRN ×2 (11:09→18:42)
[2020-04-28] MEDS ORDERED: Potassium Chloride 20 MEQ Tab.ER PO ONE (13:06)
[2020-04-28] MEDS: Pantoprazole 40 MG in Sodium Chloride 0.9% 10 ML IV SCH (13:38)
[2020-04-29] MEDS: Piperacillin/Tazobactam 2.25 GM in Sodium Chloride 0.9% 50 ML IV SCH ×3 (01:03→13:47)
[2020-04-29] MEDS: Heparin Sodium 5,000 Units/ML Vial SUBCUT SCH ×2 (01:03→14:37)
[2020-04-29] MEDS: Sodium Chloride 0.9% 1,000 ML IV SCH ×3 (01:14→05:51)
[2020-04-29] MEDS: Levothyroxine 75 MCG Tab PO SCH (06:25)
[2020-04-29 06:29] LABS: CARBON DIOXIDE,CO2 22.4 mmol/L (21.0-32.0); POTASSIUM,K 3.5 mmol/L (3.5-5.1)
[2020-04-29] MEDS: Acetaminophen 325 MG Tab PO PRN (09:23)
[2020-04-29] MEDS: Rosuvastatin 10 MG Tab PO SCH (09:24)
[2020-04-29] MEDS: Escitalopram 10 MG Tab PO SCH (09:24)
[2020-04-29] MEDS: Diltiazem 120 MG Cap.CD PO SCH (11:45)
[2020-04-29] MEDS ORDERED: metroNIDAZOLE 250 MG Tab PO ONE (13:41)
[2020-04-29] MEDS ORDERED: Levofloxacin 250 MG Tab PO ONE (13:41)
[2020-04-29] MEDS: Pantoprazole 40 MG in Sodium Chloride 0.9% 10 ML IV SCH (13:47)
[2020-04-29 14:02] VITALS: BP 107/60; PULSE 69
--- NOTE | 2020-04-29 14:43 | PCM.DCSUM1 ---
Discharge Summary - Hospital Course Brief History: This 79 year old female with pmh of HTN and hypothyroidism presented to the ED with complaints of constipation and abdominal pain. She reports she has been constipated x 3 weeks and saw her PCP, who suggested Miralax and Colace. She had her last BM a couple days ago, no blood and it was very difficult to pass. She denies diarrhea. She reports the LLQ abdominal pain started about 1 week ago, she has had some mild nausea, but able to eat and drink at home. She denies chest pain, shortness of breath, vomiting, urinary concerns and no focal neurological deficits. She denies alcohol or tobacco use and no recreational drug use. She reports she has had many abdominal surgeries, including cholecystectomy, appendectomy and hysterectomy. She reports she last had a colonoscopy 15 years ago and reports that was normal. No history of colon cancer. In the ED leukocytosis notes at 16,400, K+ 2.5 BUN 14, Cr 1.3. VS remained stable. CT abdomen pelvis revealed acute sigmoid diverticulitis along with mild descending colon diverticulitis as well. She was treated with IVFs and Zosyn in the ED along with potassium PO. She will be admitted inpatient for acute diverticulitis and hypokalemia. PCP, Dr Ayon Diagnosis: Stroke: No - Discharge Data Discharge Date: 04/29/20 Discharge Disposition: Home, Self-Care 01 Condition: Good - Referral to Home Health Primary Care Physician: Franklin Ayon MD - Discharge Diagnosis/Problem(s) (1) Diverticulitis SNOMED Code(s): 712323882 ICD Code: K57.92 - DVTRCLI OF INTEST, PART UNSP, W/O PERF OR ABSCESS W/O BLEED Status: Acute Current Visit: Yes (2) Hypokalemia SNOMED Code(s): 29717355 ICD Code: E87.6 - HYPOKALEMIA Status: Acute Current Visit: Yes (3) HTN (hypertension) SNOMED Code(s): 26613606 ICD Code: I10 - ESSENTIAL (PRIMARY) HYPERTENSION Status: Chronic Current Visit: Yes Qualifiers: Hypertension type: essential hypertension Qualified Code(s): I10 - Essential (primary) hypertension (4) HLD (hyperlipidemia) SNOMED Code(s): 91739627 ICD Code: E78.5 - HYPERLIPIDEMIA, UNSPECIFIED Status: Chronic Current Visit: Yes (5) Hypothyroidism SNOMED Code(s): 96353735 ICD Code: E03.9 - HYPOTHYROIDISM, UNSPECIFIED Status: Chronic Current Visit: Yes - Patient Summary/Data Consults: Consultations 04/28/20 10:06 PT Evaluation and Treatment [CONS] Routine Hospital Course: Admitting Diagnoses: Diverticulitis Hypokalemia Constipation Discharge Diagnoses: Diverticulitis Tena was admitted secondary to diverticulitis and constipation. She was treated with Zosyn, monotherapy for diverticulitis. She was placed on bowel rest. She steadily improved, leukocytosis improved after 24 hours of antibiotics. BC remained negative as well as UC. Today she is tolerating soft diet with no pain. She has bad BMs after antibiotics were started. She will be sent home with Levaquin and Flagyl TID for 12 more days. She was counseled on GI soft diet and low fiber diet for next 2 weeks. GI referral sent to [facility] for follow up, for colonoscopy. Treatment plan and care discussed with both patient and Koki, her daughter. Both in agreement. Tena is eager for discharge. She continues to have swelling to L knee, but pain has improved. Xrays obtained, which shows effusion and arthritis. Tylenol has helped the pain. No injury. She is ambulating well. No erythema is noted. She is to return to ED or clinic if concerns should arise. Follow up with PCP next week. - Patient Instructions Diet: GI Soft/Low Residue/Low Fiber Activity: As Tolerated, No Strenuous Activities Showering/Bathing: May Shower Notify Provider of: Fever, Increased Pain, Swelling and Redness, Drainage, Nausea and/or Vomiting - Discharge Plan *PRESCRIPTION DRUG MONITORING PROGRAM REVIEWED*: Not Applicable *COPY OF PRESCRIPTION DRUG MONITORING REPORT IN PATIENT LAURI: Not Applicable Prescriptions/Med Rec: metroNIDAZOLE [Flagyl] 500 mg PO Q8H #36 tab levoFLOXacin [Levaquin] 750 mg PO DAILY #12 tab Home Medications: Home Meds Hydrochlorothiazide 1 tab PO DAILY 03/28/16 [History] Levothyroxine [Synthroid] 75 mcg PO DAILY 03/28/16 [History] Multivitamin [Daily Multiple Vitamin] 1 tab PO DAILY 03/28/16 [History] Rosuvastatin [Crestor] 10 mg PO DAILY 03/28/16 [History] Diltiazem [Cardizem SR] 120 mg PO DAILY 04/27/20 [History] Escitalopram [Lexapro] 10 mg PO DAILY 04/27/20 [History] levoFLOXacin [Levaquin] 750 mg PO DAILY #12 tab 04/29/20 [Rx] metroNIDAZOLE [Flagyl] 500 mg PO Q8H #36 tab 04/29/20 [Rx] Oxygen Therapy Mode: Room Air Patient Handouts: Hypokalemia, Diverticulitis, Levofloxacin tablets, Metronidazole tablets or capsules Referrals: Franklin Ayon MD [Primary Care Provider] - 05/05/20 2:45 pm (Please arrive 15 minutes early with your identification, insurance cards and your own facemask.) - Discharge Summary/Plan Comment DC Time >30 min.: No - Patient Data Vitals - Most Recent: Last Vital Signs Temp 98.8 F 04/29/20 13:00 Pulse 69 04/29/20 13:00 Resp 16 04/29/20 13:00 BP 107/60 04/29/20 13:00 Pulse Ox 95 04/29/20 13:00 Weight - Most Recent: 66.224 kg I&O - Last 24 hours: Intake & Output 04/28/20 04/29/20 04/29/20 22:59 06:59 14:59 Intake Total 55 250 Output Total 700 Balance 55 -450 Lab Results - Last 24 hrs: Laboratory Results - last 24 hr 04/29/20 04/29/20 Range/Units 05:40 05:40 WBC 11.81 H (4.0-11.0) K/uL RBC 3.25 L (4.30-5.90) M/uL Hgb 10.4 L (12.0-16.0) g/dL Hct 30.3 L (36.0-46.0) % MCV 93.2 (80.0-98.0) fL MCH 32.0 (27.0-32.0) pg MCHC 34.3 (31.0-37.0) g/dL RDW Std Deviation 44.8 (28.0-62.0) fl RDW Coeff of [place] 13 (11.0-15.0) % Plt Count 195 (150-400) K/uL MPV 9.40 (7.40-12.00) fL Neut % (Auto) 76.3 (48.0-80.0) % Lymph % (Auto) 11.7 L (16.0-40.0) % [place] % (Auto) 11.1 (0.0-15.0) % Eos % (Auto) 0.8 (0.0-7.0) % Baso % (Auto) 0.1 (0.0-1.5) % Neut # (Auto) 9.0 H (1.4-5.7) K/uL Lymph # (Auto) 1.4 (0.6-2.4) K/uL [place] # (Auto) 1.3 H (0.0-0.8) K/uL Eos # (Auto) 0.1 (0.0-0.7) K/uL Baso # (Auto) 0.0 (0.0-0.1) K/uL Nucleated RBC % 0.0 /100WBC Nucleated RBCs # 0 K/uL Sodium 144 (136-145) mmol/L Potassium 3.5 (3.5-5.1) mmol/L Chloride 111 H (98-107) mmol/L Carbon Dioxide 22.4 (21.0-32.0) mmol/L BUN 11 (7.0-18.0) mg/dL Creatinine 1.1 H (0.6-1.0) mg/dL Est Cr Clr Drug Dosing 33.74 mL/min Estimated GFR (MDRD) 47.8 ml/min Glucose 110 H (74-106) mg/dL Calcium 8.0 L (8.5-10.1) mg/dL ISMAEL Results - Last 24 hrs: Microbiology 04/28/20 09:10 Aerobic Blood Culture - Preliminary Blood - Venous NO GROWTH AFTER 1 DAY Anaerobic Blood Culture - Preliminary NO GROWTH AFTER 1 DAY 04/28/20 08:35 Aerobic Blood Culture - Preliminary Blood - Venous - Lab Draw NO GROWTH AFTER 1 DAY Anaerobic Blood Culture - Final 04/27/20 16:50 Urine Culture - Preliminary Urine, Clean Catch NO GROWTH AFTER 1 DAY Med Orders - Current: Current Medications Acetaminophen (Tylenol) 650 mg PO Q4H PRN PRN Reason: Pain Last Admin: 04/29/20 09:23 Dose: 650 mg Documented by: Diltiazem HCl (Cardizem Cd) 120 mg PO DAILY [facility] Last Admin: 04/29/20 11:45 Dose: Not Given Documented by: Escitalopram Oxalate (Lexapro) 10 mg PO DAILY [facility] Last Admin: 04/29/20 09:24 Dose: 10 mg Documented by: Heparin Sodium (Porcine) (Heparin Sodium) 5,000 units SUBCUT Q12H [facility] Last Admin: 04/29/20 14:37 Dose: Not Given Documented by: Pantoprazole Sodium 40 mg/ (Sodium Chloride) 10 mls @ 300 mls/hr IV Q24H [facility] Last Admin: 04/29/20 13:47 Dose: Not Given Documented by: Sodium Chloride (Normal Saline) 1,000 mls @ 100 mls/hr IV Q10H [facility] Last Admin: 04/29/20 05:51 Dose: Not Given Documented by: Piperacillin Sod/Tazobactam (Sod 2.25 gm/ Sodium Chloride) 50 mls @ 100 mls/hr IV Q6H [facility] Last Admin: 04/29/20 13:47 Dose: Not Given Documented by: Sodium Chloride (Normal Saline) 500 mls @ 999 mls/hr IV .BOLUS [facility] Levothyroxine Sodium (Levothyroxine) 75 mcg PO DAILY@0700 [facility] Last Admin: 04/29/20 06:25 Dose: 75 mcg Documented by: Morphine Sulfate (Morphine) 2 mg IVPUSH Q4H PRN PRN Reason: Pain Ondansetron HCl (Zofran) 4 mg IVPUSH Q4H PRN PRN Reason: Nausea Rosuvastatin Calcium (Crestor) 10 mg PO DAILY [facility] Last Admin: 04/29/20 09:24 Dose: 10 mg Documented by: Sodium Chloride (Saline Flush) 2.5 ml FLUSH ASDIRECTED PRN PRN Reason: Keep Vein Open Last Admin: 04/27/20 09:32 Dose: 2.5 ml Documented by: Discontinued Medications Sodium Chloride (Normal Saline) 1,000 mls @ 999 mls/hr IV .Bolus ONE Stop: 04/27/20 10:23 Last Admin: 04/27/20 09:31 Dose: 999 mls/hr Documented by: Piperacillin Sod/Tazobactam (Sod 3.375 gm/ Sodium Chloride) 50 mls @ 100 mls/hr IV ONETIME ONE Stop: 04/27/20 11:26 Last Admin: 04/27/20 12:30 Dose: 100 mls/hr Documented by: Piperacillin Sod/Tazobactam (Sod 2.25 gm/ Sodium Chloride) 50 mls @ 100 mls/hr IV Q6H [facility] Last Admin: 04/27/20 14:36 Dose: Not Given Documented by: Potassium Chloride 40 meq/ (Sodium Chloride) 500 mls @ 100 mls/hr IV ONETIME ONE Stop: 04/27/20 19:58 Last Admin: 04/27/20 16:44 Dose: 100 mls/hr Documented by: Iopamidol (Isovue Multipack-370 (76%)) 75 ml IVPUSH ONETIME STA Stop: 04/27/20 14:01 Last Admin: 04/27/20 14:01 Dose: 75 ml Documented by: Levofloxacin (Levaquin) 750 mg PO ONETIME ONE Stop: 04/29/20 13:42 Last Admin: 04/29/20 14:33 Dose: 750 mg Documented by: Metronidazole (Metronidazole) 500 mg PO ONETIME ONE Stop: 04/29/20 13:42 Last Admin: 04/29/20 14:34 Dose: 500 mg Documented by: Potassium Chloride (Potassium Chloride) 40 meq PO ONETIME ONE Stop: 04/27/20 10:07 Last Admin: 04/27/20 10:15 Dose: 40 meq Documented by: Potassium Chloride (Klor-Con M20) 40 meq PO ONETIME ONE Stop: 04/28/20 13:07 Last Admin: 04/28/20 13:39 Dose: 40 meq Documented by: Sodium Chloride (Saline Flush) 10 ml FLUSH ASDIRECTED PRN PRN Reason: Keep Vein Open Last Admin: 04/27/20 09:32 Dose: 10 ml Documented by: - Exam General: Reports: Alert, Oriented, Cooperative, No Acute Distress Lungs: Reports: Clear to Auscultation, Normal Respiratory Effort Cardiovascular: Reports: Regular Rate, Regular Rhythm GI/Abdominal Exam: Normal Bowel Sounds, Soft, Non-Tender Extremities: Normal Inspection, Normal Range of Motion, Joint Swelling (L knee, improved since yesterday. No erythema. mild effusion noted.) Neurological: Reports: No New Focal Deficit Psy/Mental Status: Reports: Alert, Normal Affect, Normal Mood
--- NOTE | 2020-04-29 15:05 | CR ---
Left knee: AP and lateral views left knee were obtained. Comparison: No prior knee exam. Joint effusion is seen. Well-corticated calcification is noted of the anterior patella which appears to be old and dystrophic. Slight osteophytes are noted off the medial joint. Medial and lateral joint compartments are preserved. No acute fracture or other abnormality is appreciated. Impression: 1. Joint effusion. 2. Mild degenerative change. Diagnostic code #3 This report was dictated in MDT
== END 2020-04-29 13:15 | disposition home or self-care (01) | DRG 392 ==
LOC: MW.ED 09:06 → MW.MS 12:21
PROVIDERS: ADMIT Internal Medicine; ATTEND Internal Medicine
DX: K57.92 Diverticulitis of intestine, part unspecified, without perforation or abscess without bleeding (principal); K57.32 Diverticulitis of large intestine without perforation or abscess without bleeding; E87.6 Hypokalemia; I10 Essential (primary) hypertension; E78.5 Hyperlipidemia, unspecified; E03.9 Hypothyroidism, unspecified; Z66 Do not resuscitate; Z90.49 Acquired absence of other specified parts of digestive tract; Z90.710 Acquired absence of both cervix and uterus; Z96.619 Presence of unspecified artificial shoulder joint; Z98.890 Other specified postprocedural states; M25.562 Pain in left knee; Z20.828 Contact with and (suspected) exposure to other viral communicable diseases; K59.00 Constipation, unspecified; I48.91 Unspecified atrial fibrillation; E78.00 Pure hypercholesterolemia, unspecified; F32.9 Major depressive disorder, single episode, unspecified; Z79.890 Hormone replacement therapy; Z79.899 Other long term (current) drug therapy
CPT/HCPCS: 36415; 74177; 80053; 83690; 83735; 85025; 96360; 99285; A9270; J7030; U0002; 70450; 70450-26; 73560-26-LT; 73560-LT; 80048; 81001; 87040; 87086; 97161-GP; C9113; J1644; J2543; J3480; J7040; J7050; Q9967